=== PATIENT | male | born 1970 | race African-American/Black ===

== ENCOUNTER 2017-06-30 00:41 | Observation (INO) | payer BC ==
[2017-06-30 01:29] LABS: #Basophils 0.1 thou/uL (0.0-0.2); #Eosinphils 0.1 thou/uL (0.0-0.7); #Lymphocytes 3.2 thou/uL (1.20-3.40); #Monocytes 0.8 thou/uL (0.11-0.59); #Neutrophils 4.6 thou/uL (1.40-6.50); %Basophils 0.9 % (0.0-1.0); %Eosinophils 1.4 % (0.0-10.0); %Lymphocytes 36.7 % (21.0-51.0); %Monocytes 8.6 % (0.0-10.0); %Neutrophils 52.5 % (42.0-75.0); Hemoglobin 15.4 g/dL (14.0-18.0); Mean Corpuscular HGB CONC 33.1 g/dL (32.0-36.0); Mean Corpuscular Hemoglobin 32.8 pg (27.0-31.0); Mean Corpuscular Volume 99.2 fl (80.0-94.0); Platelet Count 193 thou/uL (130-400); RBC Distribution Width 13.6 % (11.5-14.5); White Blood Cell (WBC) Count 8.8 thou/uL (4.8-10.8)
[2017-06-30 01:31] LABS: Bilirubin Small (Negative); Blood, Urine Negative (Negative); Clarity CLEAR (Clear); Glucose, Urine (Dipstick) Negative (Negative); Leukocyte Negative (Negative); Nitrite Negative (Negative); Protein, Urine (Dipstick) Negative (Neg-Trace); Specific Gravity, Urine 1.037 (1.002-1.036); pH, Urine 5.5 (5.0-9.0)
[2017-06-30 01:47] LABS: ALT (SGPT) 30 U/L (8-55); AST (SGOT) 32 U/L (5-34); Albumin 3.9 g/dL (3.5-5.0); Alkaline Phosphatase 74 U/L (40-150); Anion Gap 12 mmol/L (10-20); BUN (Urea Nitrogen) 15 mg/dL (8.9-20.6); Bilirubin, Total 0.4 mg/dL (0.2-1.2); Calc. Creatinine Clearance 0 mL/min (70-130); Calcium 9.1 mg/dL (7.8-10.44); Carbon Dioxide 25 mmol/L (22-29); Chloride 106 mmol/L (98-107); Estimated GFR-MDRD 63; Globulin 2.7 g/dL (2.4-3.5); Glucose 91 mg/dL (70-105); Potassium 3.8 mmol/L (3.5-5.1); Protein, Total 6.6 g/dL (6.0-8.3); Sodium 139 mmol/L (136-145)
[2017-06-30 01:51] LABS: CKMB 4.5 ng/mL (0-6.6); Troponin I 0.041 ng/mL (< 0.028)
[2017-06-30] MEDS ORDERED: Aspirin 325 MG TAB ONE (03:20)
[2017-06-30] MEDS ORDERED: Nitroglycerin 0.4 MG TAB (25 Tab Bottle) ONE (03:20)
[2017-06-30 03:34] LABS: Amphetamine Not Detected (NotDetected); Barbiturates Screen Not Detected (NotDetected); Benzodiazepine Screen Not Detected (NotDetected); Cocaine Metabolite Screen Not Detected (NotDetected); Medtox Control Line Valid? VALID (VALID); Medtox Reader # READER 4; Methadone Not Detected (NotDetected); Methamphetamine Detected (NotDetected); Opiate Screen Not Detected (NotDetected); Oxycodone Screen Not Detected (NotDetected); Phencyclidine (PCP) Not Detected (NotDetected); THC/Cannabinoid Screen Not Detected (NotDetected); Tricyclic Screen Not Detected (NotDetected)
[2017-06-30 05:58] LABS: CKMB 4.1 ng/mL (0-6.6); Troponin I 0.038 ng/mL (< 0.028)
[2017-06-30] MEDS ORDERED: Enoxaparin Sodium 100 MG/ML SYRINGE ONE (06:18)
[2017-06-30] MEDS ORDERED: Enoxaparin Sodium 30 MG/0.3 ML SYRINGE ONE (06:18)
[2017-06-30] MEDS ORDERED: Ondansetron ODT 4 MG TAB SL PRN (07:01)
[2017-06-30] MEDS ORDERED: Acetaminophen 325 MG TAB PO PRN ×2 (07:01→07:35)
[2017-06-30] MEDS ORDERED: Ondansetron HCl/PF 4 MG/2 ML Vial IVP PRN ×2 (07:01→07:35)
[2017-06-30 07:13] VITALS: BMI 34.8
[2017-06-30] MEDS ORDERED: Artificial Tears 18 DROP/0.9 ML EA EYE PRN (07:35)
[2017-06-30] MEDS ORDERED: Chloraseptic Spray 180 ml Bottle PO PRN (07:35)
[2017-06-30] MEDS ORDERED: Ondansetron ODT 4 MG TAB PO PRN (07:35)
[2017-06-30] MEDS ORDERED: Mag-Al 1200 mg/1200 mg/30 ML UDCUP PO PRN (07:35)
[2017-06-30] MEDS ORDERED: Loratadine 10 MG TAB PO PRN (07:35)
[2017-06-30] MEDS ORDERED: Senokot 8.6 MG TAB PO PRN (07:35)
[2017-06-30] MEDS ORDERED: Eucerin (Mineral Oil/Petrolatum,White) 30 gm Jar TOP PRN (07:35)
[2017-06-30] MEDS ORDERED: HYDROcodone/Acetaminophen 10/325 mg Tablet PO PRN (07:35)
[2017-06-30] MEDS ORDERED: Loperamide HCl 2 MG CAP PO PRN (07:35)
[2017-06-30] MEDS ORDERED: Milk Of Magnesia 30 ML UDCUP PO PRN (07:35)
[2017-06-30] MEDS ORDERED: Sodium Chloride 0.65% Nasal 44 ML BOT EA NARE PRN (07:35)
[2017-06-30] MEDS ORDERED: Lorazepam 1 MG TAB PO PRN (07:35)
[2017-06-30] MEDS ORDERED: Zolpidem Tartrate 5 MG TAB PO PRN (07:35)
[2017-06-30] MEDS ORDERED: hydrALAZINE 20 MG/ML VIAL SLOW IVP PRN (07:35)
[2017-06-30] MEDS ORDERED: Nitroglycerin 0.4 MG TAB (25 Tab Bottle) SL PRN (07:35)
[2017-06-30] MEDS ORDERED: Diabetic Tussin 200 MG/10 ML UDCUP PO PRN (07:35)
[2017-06-30 08:07] LABS: Cardiac Risk 3.4 (Less than 4.5)
[2017-06-30 09:16] LABS: Troponin I 0.045 ng/mL (< 0.028)
[2017-06-30] MEDS: Aspirin 325 MG TAB PO SCH (09:43)
[2017-06-30] MEDS: Famotidine 20 MG TAB PO SCH ×2 (10:35→21:16)
--- NOTE | 2017-06-30 10:59 | HP ---
PRIMARY CARE PHYSICIAN: [facility] call admission. REASON FOR ADMISSION: Epigastric abdominal pain, abnormal troponin and rhabdomyolysis. HISTORY OF PRESENT ILLNESS: A 47-year-old -[place] male who has no significant medical history who came to the emergency room with complaint of abdominal pain. He pointed in epigastric and periumbilical region associated with nausea. He did not have any chest pain, palpitation or shortness of breath. He did not have any orthopnea, PND or leg swelling. Patient had recently upper respiratory tract infection, but he feels that he has recovered from that completely. He denies any exertional related chest pain, palpitation or dizziness. He was complaining of epigastric abdominal pain, but after emergency room treatment, his pain was subsided. When I saw this patient is on the floor, at that time he was not hurting in his abdomen. He had initially that pain about 7/10 in intensity, which was radiating to back and getting worse with oral intake. He also had nausea and vomiting. He denies any fever or chills. He denies any hematemesis, melena or hematochezia. He denies any abdominal distention. He denies any NSAID abuse. He denies any similar problem in the past. In the emergency room, this patient was evaluated and he had electrocardiogram, which was showing LVH with repolarization changes and it was significantly abnormal and there is some poor ST-T changes in the septal lead and that is why we decided to keep this patient in the hospital for observation. Subsequently, the patient had a troponin, which was indeterminant range. His total CK was also elevated. His urine drug screen is positive for methamphetamine, but patient did report that he is not using any illicit drugs. PAST MEDICAL HISTORY: Reviewed and negative. PAST SURGICAL HISTORY: Reviewed and negative. PAST PSYCHIATRIC HISTORY: Reviewed and negative. SOCIAL HISTORY: Patient drinks alcohol socially, but he denies any illicit drug abuse. He denies any smoking. He denies any marijuana abuse. FAMILY HISTORY: Mother had hypertension and heart disease, but no strong family history of cancer or stroke. ALLERGIES: No known drug allergies. CURRENT HOME MEDICATIONS: The patient is not taking any prescribed or non- prescribed medication. EMERGENCY ROOM COURSE: Patient was given Lovenox 130 mg subQ, normal saline 1 liter, nitroglycerin 0.4 mg sublingual and aspirin 325 mg. REVIEW OF SYSTEMS: The following complete review of systems was negative, unless otherwise mentioned in the HPI or below: Constitutional: Weight loss or gain, ability to conduct usual activities. Skin: Rash, itching. Eyes: Double vision, pain. ENT/Mouth: Nose bleeding, neck stiffness, pain, tenderness. Cardiovascular: Palpitations, dyspnea on exertion, orthopnea. Respiratory: Shortness of breath, wheezing, cough, hemoptysis, fever or night sweats. Gastrointestinal: Poor appetite, abdominal pain, heartburn, nausea, vomiting, constipation, or diarrhea. Genitourinary: Urgency, frequency, dysuria, nocturia. Musculoskeletal: Pain, swelling. Neurologic/Psychiatric: Anxiety, depression. Allergy/Immunologic: Skin rash, bleeding tendency. PHYSICAL EXAMINATION: VITAL SIGNS: On arrival, blood pressure 175/87, pulse 69, respiratory rate 18, temperature 98.4, saturation 98% on room air. Weight 129.2 kilogram. GENERAL: Patient is currently alert, awake, no obvious acute distress. HEAD: Normocephalic, atraumatic. EYES: Pupils round, reactive to light. Extraocular muscles intact. ENT: Oropharynx within normal limits. Moist mucous membranes. No oral lesions. No pharyngeal erythema, no exudate. NECK: Supple, no JVD, no thyromegaly, no carotid bruit, no jugular venous distention. LUNGS: Clear to auscultation without any rhonchi or rales. CARDIAC: S1, S2 regular. No murmur, no gallop, no rub. ABDOMEN: Soft, bowel sounds present, nontender, nondistended. No organomegaly , no mass, no suprapubic tenderness. BACK: Unremarkable, no CVA tenderness. EXTREMITIES: Upper extremity: Passive movement of all joints are normal. Lower extremity: No edema. Good peripheral pulsation, no calf tenderness. PSYCHIATRIC: Normal affect. HEMATOLOGIC: No lymphadenopathy. NEUROLOGIC: Nonfocal examination. SIGNIFICANT LABS: 1. EKG based on my review normal sinus rhythm, LVH with repolarization changes. CK and second EKG was showing first degree AV block, LVH, ST-T changes in the lateral and septal leads. 2. CBC: WBC 8.8, hemoglobin 15.4, platelets 193. BMP: Sodium 139, potassium 3.8, chloride 106, carbon dioxide 25, anion gap 12, BUN 15, creatinine 1.45, glucose 91 and calcium 9.1. 3. LFT: AST 30, ALT 30, alkaline phosphatase 74, albumin 3.9. 4. Triglyceride 56, cholesterol 112, LDL 68, HDL 33, CK 582, CK-MB 4.5. Troponin I 0.041, then 0.038, then 0.045. 5. Urinalysis is unremarkable. Urine drug screen positive for methamphetamine. ASSESSMENT AND PLAN/IMPRESSION: 1. Acute epigastric abdominal pain, etiology uncertain, but resolved. We will continue Pepcid 20 mg p.o. b.i.d. 2. Abnormal EKG. Patient has elevated troponin, indeterminate range. At this point, suspecting left ventricular hypertrophy with repolarization changes, but given significant EKG abnormality. I will consult Cardiology for their opinion and further decision including stress test. We will defer to them. I will obtain echocardiography for evaluation of left ventricular hypertrophy and other wall motion abnormality. Meanwhile, we will continue aspirin 325 mg p.o. daily. Lipid profile checked and is within normal limits. We will monitor patient's blood pressure while in hospital and consider antihypertensive medication on discharge. 3. Rhabdomyolysis. The patient has received IV fluid in the emergency room. We will repeat total CK tomorrow. 4. Elevated troponin, likely due to demand ischemia, underlying cardiac etiology needs to be excluded. Patient will follow up with Cardiology in hospital and we will obtain echocardiography. We will continue aspirin 325 mg p.o. daily. 5. Obesity. Dietary education given, weight loss education given. Healthy lifestyle measures discussed with the patient. 6. Methamphetamine positive in the urine drug screen, though patient denies any drug abuse. We provided patient counseling may be this drug positive in his urine drug screen could be related with drug interaction. 7. Deep venous thrombosis prophylaxis not needed because we are expecting discharge in 24 hours. 8. Gastrointestinal prophylaxis, Pepcid 20 mg p.o. b.i.d. 9. Code status: The patient is FULL CODE. The patient's is surrogate decision maker. 10. Chronic kidney disease stage 2. The patient is advised to avoid nephrotoxins. Disposition plan based on clinical course and cardiology recommendation. We will monitor on telemetry floor tonight. Plan of care discussed with the patient and family member at bedside. MTDD
[2017-06-30 16:31] LABS: Troponin I 0.029 ng/mL (< 0.028)
--- NOTE | 2017-06-30 20:35 | CON ---
DATE OF CONSULTATION: 06/30/2017 REASON FOR CONSULTATION: Epigastric pain and abnormal stress test with slight elevation of troponin. HISTORY OF PRESENT ILLNESS: Mr. Chan is a 47-year-old gentleman. He is active and healthy. He ca me to the hospital complaining of severe epigastric pain. EKG was done which will be outlined below. Cardiac enzymes were obtained, which were barely detectable just out of the negative range as will be outlined below. Because of the EKG, the patient was admitted here. He said he never had chest pa in, just the epigastric discomfort. The patient takes no medications on a regular basis. Otherwise, he is active and healthy. He said emory zendejas did take some Nyquil. He has had a cold recently. He took Nyquil last few days and some over-the- counter antihistamine as well. I am not sure what brand the antihistamine was. REVIEW OF SYSTEMS: CONSTITUTIONAL: No significant weight gain or loss. VISION: No changes. HEARING: No changes. PULMONARY: No cough or wheezing. GASTROINTESTINAL: No nausea, vomiting, diarrhea. SKIN: No rashes. NEUROLOGIC: No unilateral weakness or numbness. PSYCHIATRIC: No unusual depression or anxiety. HEMATOLOGIC: No unusual bruising. GENITOURINARY: No burning with urination. FAMILY HISTORY: Negative for heart disease at a young age. SOCIAL HISTORY: Occasional alcohol, no drugs. Does not smoke. PHYSICAL EXAMINATION: GENERAL: Pleasant gentleman, in no distress. VITAL SIGNS: Blood pressure initially was 175/87, pulse 70. He said he was also noted to be high pr eviously. NECK: Neck veins normal. Carotid normal upstrokes. No bruits. LUNGS: Clear. No wheezing. CARDIAC: Normal S1, normal S2. There is no murmur, rub or gallop. ABDOMEN: Soft and nontender. No hepatosplenomegaly. EXTREMITIES: Warm and dry. No clubbing, cyanosis or edema. Good peripheral pulses. SKIN: Warm and dry. PERTINENT LABORATORY: The troponin level was 0.29 with a peak of 0.045 and then 0.041, most recent 0 .029. EKG looks like left ventricular hypertrophy. There is deep T-wave inversions in V2 through V6 and le ad I and aVL. The only difference between the two EKGs are somewhat deep T-wave inversion in V2 and V3 between the first and second EKG. Echocardiogram showed normal ejection fraction with moderate global concentric left ventricular hyper trophy. The patient did have a toxicology screen, which was positive for methamphetamine. However, he denies methamphetamine and he said that he was taking vhtz-enp-zhfeefo cold medicines and his says the same thing. His Nyquil and looking this up the ingredients of Nyquil can cause a false positive damian t for methamphetamine, similar medicines chemically to the methamphetamine, which sometimes gets a fa lse positive test. ASSESSMENT: 1. Hypertension. 2. Renal insufficiency with the creatinine 1.45. 3. Global left ventricular hypertrophy. 3. EKG which seems more likely to be related to the left ventricular hypertrophy than to ischemia. 4. Borderline troponin levels. PLAN: 1. Recommend Cardiolite treadmill testing done tomorrow. 2. After he gets done with the stress test, I would recommend amlodipine 5 mg a day. Would not star t this until the stress test is done as they could reduce the sensitivity of the stress test.
[2017-07-01] MEDS ORDERED: Losartan Potassium 25 MG TAB PO SCH (09:00)
--- NOTE | 2017-07-01 09:33 | PDOC.PN ---
- Subjective Encounter Start Date: 07/01/17 Encounter Start Time: 06:45 -: old records requested/rev has back pain, no chest pain Patient seen and examined. No overnight events - Objective Resuscitation Status: Resuscitation Status FULL:Full Resuscitation MAR Reviewed: Yes Vital Signs & Weight: Vital Signs (12 hours) Temp Pulse Resp BP BP Pulse Ox 07/01/17 07:52 97.5 F L 56 L 16 159/81 H 98 07/01/17 07:50 97.5 F L 56 L 16 07/01/17 04:46 97.2 F L 53 L 14 162/91 H 96 06/30/17 23:05 159/83 H Weight Weight 235 lb 11.2 oz I&O: 06/30/17 07/01/17 07/02/17 06:59 06:59 06:59 Intake Total 1880 Balance 1880 Result Diagrams: 06/30/17 01:15 06/30/17 01:15 Radiology Reviewed by me: Yes (echo-lvh) EKG Reviewed by me: Yes (nsr) Phys Exam - Physical Examination Constitutional: NAD HEENT: PERRLA, moist MMs, sclera anicteric Neck: no JVD, supple Respiratory: no wheezing, no rales, no rhonchi Cardiovascular: RRR, no significant murmur, no rub Gastrointestinal: soft, non-tender, no distention, positive bowel sounds Musculoskeletal: no edema, pulses present Neurological: non-focal, normal sensation, moves all 4 limbs Psychiatric: normal affect, A&O x 3 Skin: no rash, normal turgor Dx/Plan (1) Abdominal pain, epigastric Code(s): R10.13 - EPIGASTRIC PAIN Status: Resolved (2) Abnormal EKG Code(s): R94.31 - ABNORMAL ELECTROCARDIOGRAM [ECG] [EKG] Status: Acute (3) Elevated troponin Code(s): R74.8 - ABNORMAL LEVELS OF OTHER SERUM ENZYMES Status: Acute (4) LVH (left ventricular hypertrophy) due to hypertensive disease Code(s): I11.9 - HYPERTENSIVE HEART DISEASE WITHOUT HEART FAILURE Status: Acute (5) Low back pain Code(s): M54.5 - LOW BACK PAIN Status: Acute (6) Methamphetamine use Code(s): F15.10 - OTHER STIMULANT ABUSE, UNCOMPLICATED Status: Acute (7) Rhabdomyolysis Code(s): M62.82 - RHABDOMYOLYSIS Status: Acute (8) Obesity (BMI 30.0-34.9) Code(s): E66.9 - OBESITY, UNSPECIFIED Status: Chronic - Plan cont current plan of care * T-3 on discharge for pain * today stress test * if normal, DC later today * medication reviewed as below * symptomatic treatment. Review of Systems - Review of Systems Constitutional: negative: fever, chills, sweats, weakness, malaise, other Eyes: negative: Pain, Vision Change, Conjunctivae Inflammation, Eyelid Inflammation, Redness, Other ENT: negative: Ear Pain, Ear Discharge, Nose Pain, Nose Discharge, Nose Congestion, Mouth Pain, Mouth Swelling, Throat Pain, Throat Swelling, Other Respiratory: negative: Cough, Dry, Shortness of Breath, Hemoptysis, SOB with Excertion, Pleuritic Pain, Sputum, Wheezing Cardiovascular: negative: chest pain, palpitations, orthopnea, paroxysmal nocturnal dyspnea, edema, light headedness, other Gastrointestinal: negative: Nausea, Vomiting, Abdominal Pain, Diarrhea, Constipation, Melena, Hematochezia, Other Genitourinary: negative: Dysuria, Frequency, Incontinence, Hematuria, Retention , Other Musculoskeletal: Back Pain. negative: Neck Pain, Shoulder Pain, Arm Pain, Hand Pain, Leg Pain, Foot Pain, Other - Medications/Allergies Allergies/Adverse Reactions: Allergies Allergy/AdvReac Type Severity Reaction Status Date / Time No Known Drug Allergies Allergy Verified 06/30/17 07:22 Medications: Current Medications Acetaminophen (Tylenol) 650 mg PO Q4H PRN PRN Reason: Headache/Fever or Pain Hydrocodone Bitart/Acetaminophen ([place] 10/325) 1 tab PO Q4H PRN PRN Reason: Moderate Pain (4-6) Al Hydroxide/Mg Hydroxide (Maalox) 30 ml PO Q6H PRN PRN Reason: Heartburn or Indigestion Amlodipine Besylate (Norvasc) 5 mg PO DAILY [facility] Artificial Tears (Tears Naturale) 0 drop EA EYE PRN PRN PRN Reason: Dry Eyes Aspirin (Aspirin) 325 mg PO DAILY [facility] Last Admin: 06/30/17 09:43 Dose: Not Given Famotidine (Pepcid) 20 mg PO BID [facility] Last Admin: 06/30/17 21:16 Dose: 20 mg Guaifenesin (Robitussin Sf) 200 mg PO Q4H PRN PRN Reason: Cough Hydralazine HCl (Apresoline) 10 mg SLOW IVP Q4H PRN PRN Reason: Systolic BP > 180 Loperamide HCl (Imodium) 2 mg PO PRN PRN PRN Reason: Diarrhea/Loose Stools Loratadine (Claritin) 10 mg PO DAILYPRN PRN PRN Reason: Sinus Symptoms Lorazepam (Ativan) 1 mg PO Q4H PRN PRN Reason: Anxiety/Agitation Magnesium Hydroxide (Milk Of Magnesium) 30 ml PO DAILYPRN PRN PRN Reason: Constipation Mineral Oil/White Petrolatum (Eucerin Cream) 0 gm TOP BIDPRN PRN PRN Reason: Dry Skin Nitroglycerin (Nitrostat) 0.4 mg SL Q5MIN PRN PRN Reason: Chest Pain Ondansetron HCl (Zofran Odt) 4 mg PO Q6H PRN PRN Reason: Nausea/Vomiting Ondansetron HCl (Zofran) 4 mg IVP Q6H PRN PRN Reason: Nausea/Vomiting Phenol (Chloraseptic [place] 180 Ml Bot) 0 ml PO PRN PRN PRN Reason: Sore Throat Senna (Senokot) 2 tab PO HSPRN PRN PRN Reason: Constipation Sodium Chloride (Laplace Nasal [place] 0.65%) 0 ml EA NARE QIDPRN PRN PRN Reason: Nasal Congestion Zolpidem Tartrate (Ambien) 5 mg PO HSPRN PRN PRN Reason: Insomnia
--- NOTE | 2017-07-01 11:15 | DIS ---
DATE OF ADMISSION: 06/30/2017 DATE OF DISCHARGE: 07/01/2017 PRIMARY CARE PHYSICIAN: [facility] call admission. DISCHARGE DISPOSITION: Home. PRIMARY DISCHARGE DIAGNOSES: 1. Epigastric abdominal pain, improved. 2. Rhabdomyolysis. 3. Indeterminate troponin due to demand ischemia. 4. Methamphetamine abuse. 5. Hypertension with hypertensive heart disease. 6. Abnormal EKG due to left ventricular hypertrophy with repolarization changes. 7. Elevated troponin due to demand ischemia. 8. Acute low back pain due to lumbar sprain. 9. Left ventricular hypertrophy with hypertensive heart disease. SECONDARY DISCHARGE DIAGNOSIS: Obesity with BMI 34. PRIMARY PROCEDURE/OPERATION: None. RADIOLOGICAL INVESTIGATION: Echocardiography showed LVH. Stress test is pending result. SIGNIFICANT LABS: Hemoglobin 15.4, creatinine 1.45, troponin 0.029, CK 582, LDL 68. Urinalysis is u nremarkable. Urine drug screen showed methamphetamine positive. DISCHARGE MEDICATIONS: Amlodipine 5 mg p.o. daily, aspirin 81 mg p.o. daily, Tylenol No #3 one to tw o tablets q.6 hourly p.r.n. for pain. CONTRAINDICATIONS: None. CODE STATUS: FULL CODE. INPATIENT CONSULTANTS: Dr. Smith was consulted for abnormal EKG. TEST RESULTS PENDING ON DISCHARGE: None. DISCHARGE PLAN: Post hospital, the patient is advised to follow with primary care physician. HOSPITAL COURSE: A 47-year-old male, who mainly came to the ER with epigastric abdominal pain. He a bused methamphetamine, though he denied but after that he agreed. He had abnormal EKG, but most like ly that was related with LVH with repolarization changes. We consulted Cardiology and they also agre ed with that type of picture. We did echocardiography and echocardiography did show LVH. We did str ess test. Official report is pending and if stress is negative, then we will consider discharging sd m home. Cardiology recommended amlodipine. On discharge, we are also starting low dose of aspirin. Healthy lifestyle measures discussed with the patient. The patient was complaining of back pain and that is why we prescribed Tylenol #3. The patient is seen and examined at bedside today. Please see my progress note from today for furthe r details.
[2017-07-01] MEDS: Famotidine 20 MG TAB PO SCH (11:51)
[2017-07-01] MEDS: Aspirin 325 MG TAB PO SCH (11:51)
[2017-07-01 11:55] VITALS: BP 197/94
--- NOTE | 2017-07-01 12:30 | PDOC.CTH ---
Cardiology Progress Note - Subjective The pt seen and examined during and after stress test. No overnight events. No cardiac complaints during and after stress test. He has strong Fx of CAD ( mother- VT, CABG, PM; younger brother - S/p stent). - Objective Vital Signs Temp Pulse Resp BP BP Pulse Ox 07/01/17 11:53 67 197/94 H 07/01/17 07:52 97.5 F L 56 L 16 159/81 H 98 07/01/17 07:50 97.5 F L 56 L 16 07/01/17 04:46 97.2 F L 53 L 14 162/91 H 96 Weight 235 lb 11.2 oz 06/30/17 07/01/17 07/02/17 06:59 06:59 06:59 Intake Total 1880 1 Balance 1880 1 - Physical Examination General/Neuro: alert & oriented x3 Neck: no JVD present Lungs: CTA Heart: RRR Abdomen: soft Extremities: + femoral B - Telemetry Telemetry Rhythm: SR - Labs Result Diagrams: 06/30/17 01:15 06/30/17 01:15 Troponin/CKMB CK-MB (CK-2) 4.1 ng/mL (0-6.6) 06/30/17 05:27 Troponin I 0.029 ng/mL (< 0.028) H 06/30/17 15:54 - Assessment/Plan 1. Epigastric pain - The pt described as sharp pain in Epigastoric area; No CP or discomfort, dizziness, SOB, or other cardiac complaints during Stress test; Stress test result is pending at this time 2. Abnormal EKG - T wave depression in V3-V6; Cont. monitor on tele 3. LVH - Echo on 06/30/17 showed EF 60-65%, mod concentric LVH, mild MR and AR; stable with RA; cont. monitor 4. HTN - BP was up to 200 during stress test; denied headache or blurry vision; stable with current medication 5. Low back pain - managed by PCP 6. Obese - recommend regular exercise and watch his diet with low carb and fat diet MAR reviewed * From cardiac standpoint, the pt is stable to d/c to home if his stress test show normal; The pt will f/u with Dr Smith's office within 2-4 wks. Review of Systems - Review of Systems Constitutional: reports: no symptoms reported EENTM: reports: no symptoms reported Respiratory: reports: no symptoms reported Cardiac (ROS): reports: no symptoms reported ABD/GI: reports: no symptoms reported : reports: no symptoms reported Musculoskeletal: reports: no symptoms reported Skin: reports: no symptoms reported Neurological: reports: no symptoms reported
[2017-07-01 12:47] VITALS: TEMP 97.3
--- NOTE | 2017-07-01 13:04 | NM ---
NUCLEAR MEDICINE CARDIAC MYOCARDIAL PERFUSION SPECT EJECTION FRACTION STUDY WALL MOTION CINE: Date: . HISTORY: A 47- year-old male with chest pain. Family history of coronary artery disease. Hypertension. Abno rmal ECG. TECHNIQUE: Number of days: 1. Rest study: Tc99m sestamibi (Cardiolite) dose: 9.8 mCi. Exercise stress: treadmill. Stress study: Tc99m sestamibi (Cardiolite) dose: 28.3 mCi. FINDINGS: CARDIAC (MYOCARDIAL PERFUSION) SPECT There are no fixed or reversible left ventricular myocardial perfusion defects. Uptake is homogeneou s. EJECTION FRACTION STUDY EF = 47% WALL MOTION CINE No focal wall motion abnormality identified. IMPRESSION: 1. No evidence of infarction or reversible ischemia. 2. Decreased left ventricular ejection fraction of 47%. ALYSON Crawley POS: SALAS
[2017-07-02] MEDS ORDERED: Amlodipine 5 MG TAB PO SCH (09:00)
== END 2017-07-01 13:17 | disposition home or self-care (01) ==
LOC: ERS 00:41 → 2SW 06:55
PROVIDERS: ADMIT Internal Medicine Infectious Disease; ATTEND Internal Medicine Infectious Disease
DX: R10.13 Epigastric pain (principal); M62.82 Rhabdomyolysis; F15.10 Other stimulant abuse, uncomplicated; I11.9 Hypertensive heart disease without heart failure; I42.2 Other hypertrophic cardiomyopathy; S33.5XXA Sprain of ligaments of lumbar spine, initial encounter; R94.31 Abnormal electrocardiogram [ECG] [EKG]; R79.89 Other specified abnormal findings of blood chemistry; E66.9 Obesity, unspecified; Z68.34 Body mass index [BMI] 34.0-34.9, adult
CPT/HCPCS: 36415; 78452; 80053; 80061; 80306; 81003; 82553; 84484; 85025; 93005; 93017; 93306; 96360; 96361; 96372; 96374; A9500; G0378; J0360; J1650

== ENCOUNTER 2018-02-11 09:23 | Emergency (ER) | payer BC ==
--- NOTE | 2018-02-11 11:58 | RAD ---
THREE VIEWS OF THE LEFT 5TH FINGER: DATE: 02/11/18. COMPARISON: None. HISTORY: Trauma, pain. FINDINGS: There is no displaced fracture or evidence of dislocation seen. There is no radiopaque foreign body or subcutaneous gas noted. There is soft tissue swelling centered at the proximal interphalangeal joint. IMPRESSION: No acute fracture or evidence of dislocation. POS: PRINCESS
== END 2018-02-11 09:48 | disposition home or self-care (01) ==
LOC: SCSER 09:23
DX: S56.118A Strain of flexor muscle, fascia and tendon of left little finger at forearm level, initial encounter (principal); I10 Essential (primary) hypertension; X50.0XXA Overexertion from strenuous movement or load, initial encounter; Y93.67 Activity, basketball

== ENCOUNTER 2018-04-12 19:42 | Emergency (ER) | payer BC ==
[2018-04-12] MEDS ORDERED: Silver Sulfadiazine 1% Cream 50 GM JAR ONE (20:08)
== END 2018-04-12 20:42 | disposition home or self-care (01) ==
LOC: SCSER 19:42
DX: T23.271A Burn of second degree of right wrist, initial encounter (principal); I10 Essential (primary) hypertension; Z79.899 Other long term (current) drug therapy; X19.XXXA Contact with other heat and hot substances, initial encounter
CPT/HCPCS: 16020

== ENCOUNTER 2018-08-21 09:30 | Emergency (ER) | payer BC | END 2018-08-21 11:51 | disposition home or self-care (01) | LOC: ERS 09:30 | DX: J06.9 Acute upper respiratory infection, unspecified (principal); I10 Essential (primary) hypertension | CPT/HCPCS: 87804; 99283 ==

== ENCOUNTER 2019-03-27 15:50 | Emergency (ER) | payer BC ==
[2019-03-27] MEDS ORDERED: Ketorolac Tromethamine 30 MG/ML VIAL ONE (18:38)
== END 2019-03-27 19:24 | disposition home or self-care (01) ==
LOC: ERS 15:50
DX: M54.5 Low back pain (principal); I10 Essential (primary) hypertension
CPT/HCPCS: 96372; 99283; J1885

== ENCOUNTER 2019-08-25 00:48 | Emergency (ER) | payer BC | END 2019-08-25 01:32 | disposition home or self-care (01) | LOC: ERS 00:48 | DX: M79.662 Pain in left lower leg (principal); M53.3 Sacrococcygeal disorders, not elsewhere classified; I10 Essential (primary) hypertension; Z79.899 Other long term (current) drug therapy | CPT/HCPCS: 99283 ==

== ENCOUNTER 2022-05-24 15:58 | Emergency (ER) | payer BC | END 2022-05-24 18:08 | disposition home or self-care (01) | LOC: ERS 15:58 | DX: B34.9 Viral infection, unspecified (principal); I10 Essential (primary) hypertension | CPT/HCPCS: 87804; 99283 ==

== ENCOUNTER 2022-12-23 10:57 | Emergency (ER) | payer BC ==
[2022-12-23] MEDS ORDERED: Ketorolac Tromethamine 30 MG/ML VIAL ONE (12:35)
[2022-12-23] MEDS ORDERED: Ondansetron PF 4 MG/2 ML Vial ONE (12:35)
[2022-12-23 13:02] LABS: Hemoglobin 15.7 g/dL (14.0-18.0); Mean Corpuscular HGB CONC 36.2 g/dL (32.0-36.0); Mean Corpuscular Hemoglobin 32.6 pg (27.0-31.0); Mean Corpuscular Volume 90.2 fl (78.0-98.0); Mean Platelet Volume 11.6 fL (7.4-10.4); Platelet Count 216 10x3/uL (130-400); RBC Distribution Width 13.9 % (11.5-14.5); Red Blood Cell (RBC) Count 4.81 mill/uL (4.70-6.10); White Blood Cell (WBC) Count 24.7 10x3/uL (4.8-10.8)
[2022-12-23 13:04] LABS: Delete Auto Diff?? YES; Manual Diff?? YES
[2022-12-23 13:21] LABS: Bilirubin Negative (Negative); Blood, Urine 1+ (Negative); CAUTI Indications for Culture Pelvic or flank pain; Clarity Turbid (Clear); Glucose, Urine (Dipstick) Normal (Negative); Ketone, Urine Negative (Negative); Leukocyte 500 Leu/uL (Negative); Nitrite Negative (Negative); Protein, Urine (Dipstick) 30 mg/dL (Neg-Trace); RBC/HPF 0-3 HPF (0-3); Specific Gravity, Urine 1.026 (1.002-1.036); Squamous Epithelial 0-3 HPF (0-3); Urobilinogen Normal mg/dL (Less than 2); pH, Urine 5.5 (5.0-9.0)
[2022-12-23 13:24] LABS: ALT (SGPT) 21 U/L (8-55); AST (SGOT) 20 U/L (5-34); Albumin 3.9 g/dL (3.5-5.0); Alkaline Phosphatase 76 U/L (40-110); Anion Gap 14 mmol/L (10-20); BUN (Urea Nitrogen) 17 mg/dL (8.4-25.7); Bilirubin, Total 0.7 mg/dL (0.2-1.2); CK (CPK) 512 U/L (30-200); Calc. Creatinine Clearance 0 mL/min (70-130); Calcium 9.4 mg/dL (7.8-10.44); Carbon Dioxide 29 mmol/L (22-29); Chloride 98 mmol/L (98-107); Estimated GFR 50; Glucose 127 mg/dL (70-105); Potassium 2.9 mmol/L (3.5-5.1); Protein, Total 6.9 g/dL (6.0-8.3); Sodium 138 mmol/L (136-145)
[2022-12-23 13:27] LABS: Band 1 % (5-11); CellaVision Operator ID LAB.MJL; Lymphocytes 7 % (21-51); Monocytes 6 % (0-10); Neutrophil 86 % (42-75); Platelet Adequacy Comment Platelets Normal; RBC Morphology Within Normal Limits; Total Cell Count 101
[2022-12-23 13:29] LABS: Bacteria/HPF 1+ HPF (None Seen)
[2022-12-23 13:30] LABS: WBC/HPF 21-50 HPF (0-3)
[2022-12-23 13:31] LABS: Sperm/HPF Rare HPF (None Seen)
[2022-12-23 13:32] LABS: Urine Culture Reflex Yes Yes
[2022-12-23] MEDS ORDERED: Potassium Chloride 20 MEQ TAB ONE (14:03)
[2022-12-23] MEDS ORDERED: cefTRIAXone (ROCEPHIN) 2 GM VIAL ONE (14:03)
== END 2022-12-23 16:12 | disposition home or self-care (01) ==
LOC: ERS 10:57
DX: N30.00 Acute cystitis without hematuria (principal); E87.6 Hypokalemia; D72.829 Elevated white blood cell count, unspecified; I10 Essential (primary) hypertension
CPT/HCPCS: 74176; 80053; 81001; 82550; 85025; 87086; 96361; 96365; 96366; 96375; J0696; J1885; J2405

== ENCOUNTER 2025-01-30 23:53 | Emergency (ER) | payer BC ==
[2025-01-31 00:16] LABS: #Basophils 0.07 10x3/uL (0.0-0.2); #Eosinophils 0.40 10x3/uL (0.0-0.7); #Monocytes 0.99 10x3/uL (0.11-0.59); #Neutrophils 6.30 10x3/uL (1.40-6.50); %Basophils 0.6 % (0.0-1.0); %Eosinophils 3.2 % (0.0-10.0); %Lymphocytes 37.6 % (21.0-51.0); %Monocytes 7.9 % (0.0-10.0); %Neutrophils 50.4 % (42.0-75.0); Hematocrit 41.7 % (42.0-52.0); Hemoglobin 14.1 g/dL (14.0-18.0); Mean Corpuscular Hemoglobin 32.1 pg (27.0-31.0); Mean Corpuscular Volume 95.0 fL (78.0-98.0); Platelet Count 235 10x3/uL (130-400); Red Blood Cell (RBC) Count 4.39 mill/uL (4.70-6.10); White Blood Cell (WBC) Count 12.49 10x3/uL (4.8-10.8)
[2025-01-31 00:26] LABS: Bacteria/HPF None Seen HPF (None Seen); CAUTI Indications for Culture Dysuria,urgency,freq; Glucose, Urine (Dipstick) Normal (Negative); Leukocyte 250 Leu/uL (Negative); Protein, Urine (Dipstick) Negative (Neg-Trace); RBC/HPF Greater than 50 HPF (0-3); Specific Gravity, Urine 1.011 (1.002-1.036); WBC/HPF 21-50 HPF (0-3)
[2025-01-31 00:28] LABS: Urine Culture Reflex Yes Yes
[2025-01-31 00:28] LABS: ALT (SGPT) 20 U/L (Less than 45); AST (SGOT) 28 U/L (11-34); Albumin 3.6 g/dL (3.1-4.5); Alkaline Phosphatase 76 U/L (40-110); Anion Gap 14 mmol/L (10-20); BUN (Urea Nitrogen) 18 mg/dL (8.4-25.7); Bilirubin, Total 0.2 mg/dL (0.3-1.2); Calc. Creatinine Clearance 0 mL/min (70-130); Calcium 8.8 mg/dL (7.8-10.44); Carbon Dioxide 25 mmol/L (22-29); Chloride 105 mmol/L (98-107); Globulin 3.2 g/dL (2.4-3.5); Glucose 106 mg/dL (70-105); Potassium 3.6 mmol/L (3.5-5.1); Sodium 140 mmol/L (136-145)
== END 2025-01-31 02:50 | disposition home or self-care (01) ==
LOC: ERS 23:53
DX: R31.9 Hematuria, unspecified (principal); R10.9 Unspecified abdominal pain
CPT/HCPCS: 36415; 74176; 80053; 81001; 85025; 87077; 87086; 87186